=== PATIENT | male | born 1975 | race Caucasian/White ===

== ENCOUNTER 2017-11-25 05:44 | Emergency (ER) | payer OTHER ==
[2017-11-25] MEDS: HYDROCODONE/APAP (5/325) TAB PO (07:21)
[2017-11-25] MEDS: ONDANSETRON (ODT) 4 MG TAB ODT (07:21)
[2017-11-25] MEDS: PREGABALIN 25 MG CAP PO (07:30)
== END 2017-11-25 07:36 | disposition home or self-care (01) ==
LOC: FTE 05:44
DX: M54.41 Lumbago with sciatica, right side (principal); F17.210 Nicotine dependence, cigarettes, uncomplicated
CPT/HCPCS: 99283